=== PATIENT | male | born 1995 | race Caucasian/White ===

== ENCOUNTER 2018-07-02 16:16 | Emergency (ER) | payer OTHER ==
[~2018-07-02] VITALS: Ht 180.3 cm; Wt 77.1 kg
[2018-07-02] MEDS ORDERED: ADDERALL 30 MG30 MG PO (16:30)
[2018-07-02] MEDS ORDERED: NORCO 5-325 TA1 EAC1 PO (17:22)
[2018-07-02] MEDS ORDERED: AUGMENTIN 875-1 EACH PO (17:22)
[2018-07-02 17:58] VITALS: BP 121/75
== END 2018-07-02 17:59 | disposition home or self-care (01) ==
LOC: M.ERS 16:16
DX: S62.306A Unspecified fracture of fifth metacarpal bone, right hand, initial encounter for closed fracture (principal); Y04.1XXA Assault by human bite, initial encounter; Y93.89 Activity, other specified; Y92.89 Other specified places as the place of occurrence of the external cause; Y99.8 Other external cause status